=== PATIENT | female | born 1995 | race African-American/Black ===

== ENCOUNTER 2017-10-07 14:06 | Emergency (ER) | payer OTHER, SELFPAY ==
[2017-10-07] MEDS ORDERED: TETANUS & DIPHTHERIA TOX,ADULT 0.5 ML VIAL ONE (15:15)
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
[2017-10-07 16:21] VITALS: BP 116/73; TEMP 98.6; O2SAT 100
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
== END 2017-10-07 16:06 | disposition home or self-care (01) ==
LOC: ER 14:06
DX: S40.812A Abrasion of left upper arm, initial encounter (principal); S40.022A Contusion of left upper arm, initial encounter; V43.52XA Car driver injured in collision with other type car in traffic accident, initial encounter; Y93.89 Activity, other specified; Y92.410 Unspecified street and highway as the place of occurrence of the external cause
CPT/HCPCS: 90714; 99283

== ENCOUNTER 2018-08-24 15:27 | Emergency (ER) | payer SELFPAY ==
--- OUTSIDE RECORDS SUMMARY | 2018-08-24 15:51 | XMS REPORT ---
:1995 [facility] Address [address] [place] [address] Care Team Providers Name Role Phone Unavailable Unavailable Unavailable Problems This patient has no known problems. Allergies, Adverse Reactions, Alerts This patient has no known allergies or adverse reactions. Medications This patient has no known medications.
[2018-08-24 17:06] LABS: Absolute Lymphocytes (CBC) 0.5 K/uL (0.7-4.9); Absolute Monocytes 0.4 K/uL (0.1-1.3); Absolute Neutrophil 5.9 K/uL (1.8-8.0); Basophils % 0.1 % (0-1.3); Eosinophils % 0.1 % (0-4.4); Hematocrit 38.2 % (36.0-45.0); Lymphocytes % 6.8 % (15.3-44.8); MPV 9.2 fL (7.6-11.3); Monocytes % 5.8 % (3.3-12.3); RBC Red Blood Cell Count 4.26 M/uL (3.86-4.86)
[2018-08-24 17:35] LABS: ALT/SGPT 30 U/L (12-78); AST/SGOT 18 U/L (15-37); Albumin 4.3 g/dL (3.4-5.0); Alkaline Phosphatase 73 U/L (45-117); BUN Blood Urea Nitrogen 9 mg/dL (7-18); Bicarbonate 25 mmol/L (21-32); Bilirubin Direct 0.2 mg/dL (0-0.2); Bilirubin Total 0.9 mg/dL (0.2-1.0); Glucose Level 84 mg/dL (74-106); Lipase 87 U/L (73-393); Potassium 3.5 mmol/L (3.5-5.1); Protein, Total 8.9 g/dL (6.4-8.2); Sodium Level 140 mmol/L (136-145)
--- NOTE | 2018-08-24 17:40 | EDPHYS ---
Physician Documentation [facility] Name: Micaela Fowler Age: 23 yrs Sex: Female : 1995 Arrival Date: 08/24/2018 Time: 15:30 Bed 19 Private MD: None, None ED Physician Alec Parra HPI: 08/24 17:16 This 23 yrs old Black Female presents to ER via Ambulatory with complaints of kb Vomiting/Diarrhea. 17:16 The patient presents to the emergency department with nausea, vomiting, diarrhea. kb Onset: The symptoms/episode began/occurred last night. Possible causes: sick contacts, by family, daughter. The symptoms are aggravated by nothing. The symptoms are alleviated by nothing. Associated signs and symptoms: Pertinent positives: diarrhea, nausea, vomiting. Severity of symptoms: At their worst the symptoms were moderate in the emergency department the symptoms are unchanged. The patient has not experienced similar symptoms in the past. The patient has not recently seen a physician. Pt reports she started getting abd cramps last night. Today has had n/v/d all day. Has not had an episode of n/v/d since 1400, but still having cramps. 2 children have same symptoms.. 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 - Social history:: Smoking status: . - Ebola Screening: : No symptoms or risks identified at this time. ROS: 17:14 Constitutional: Negative for fever, chills, and weight loss, Cardiovascular: Negative kb for chest pain, palpitations, and edema, Respiratory: Negative for shortness of breath, cough, wheezing, and pleuritic chest pain, Back: Negative for injury and pain, : Negative for injury, bleeding, discharge, and swelling, MS/Extremity: Negative for injury and deformity, Skin: Negative for injury, rash, and discoloration, Neuro: Negative for headache, weakness, numbness, tingling, and seizure. 17:14 Abdomen/GI: Positive for nausea, vomiting, and diarrhea, abdominal cramps. Exam: 17:14 Constitutional: This is a well developed, well nourished patient who is awake, alert, kb and in no acute distress. Head/Face: Normocephalic, atraumatic. Neck: Trachea midline, no thyromegaly or masses palpated, and no cervical lymphadenopathy. Supple, full range of motion without nuchal rigidity, or vertebral point tenderness. No Meningismus. Chest/axilla: Normal chest wall appearance and motion. Nontender with no deformity. No lesions are appreciated. Cardiovascular: Regular rate and rhythm with a normal S1 and S2. No gallops, murmurs, or rubs. Normal PMI, no JVD. No pulse deficits. Respiratory: Lungs have equal breath sounds bilaterally, clear to auscultation and percussion. No rales, rhonchi or wheezes noted. No increased work of breathing, no retractions or nasal flaring. Abdomen/GI: Soft, non-tender, with normal bowel sounds. No distension or tympany. No guarding or rebound. No evidence of tenderness throughout. Skin: Warm, dry with normal turgor. Normal color with no rashes, no lesions, and no evidence of cellulitis. MS/ Extremity: Pulses equal, no cyanosis. Neurovascular intact. Full, normal range of motion. Neuro: Awake and alert, GCS 15, oriented to person, place, time, and situation. Cranial nerves II-XII grossly intact. Motor strength 5/5 in all extremities. Sensory grossly intact. Cerebellar exam normal. Normal gait. Vital Signs: 15:34 BP 129 / 73; Pulse 95; Resp 18; Temp 100.3(O); Pulse Ox 100% on R/A; Weight 74.84 kg; Height 5 ft. 8 in. (172.72 cm); Pain 5/10; 16:30 BP 118 / 78; Pulse 94; Resp 18; Pulse Ox 99% on R/A; ph 17:30 BP 122 / 82; Pulse 89; Resp 16; Pulse Ox 100% on R/A; ph 19:00 BP 127 / 86; Pulse 81; Resp 18; Temp 98.2; Pulse Ox 100% on R/A; ph 15:34 Body Mass Index 25.09 (74.84 kg, 172.72 cm) MDM: 16:35 Patient medically screened. kb 17:12 Data reviewed: vital signs, nurses notes. Data interpreted: Pulse oximetry: on room air kb is 100 %. Interpretation: normal. 17:37 Counseling: I had a detailed discussion with the patient and/or guardian regarding: the kb historical points, exam findings, and any diagnostic results supporting the discharge/admit diagnosis, lab results, the need for outpatient follow up, a family practitioner, to return to the emergency department if symptoms worsen or persist or if there are any questions or concerns that arise at home. 08/24 17:09 Order name: CBC with Automated Diff; Complete Time: 19:35 EDMS 08/24 17:36 Order name: Basic Metabolic Panel; Complete Time: 17:36 EDMS 08/24 16:35 Order name: IV Saline Lock; Complete Time: 16:51 kb 08/24 16:35 Order name: Labs collected and sent; Complete Time: 16:51 kb 08/24 17:36 Order name: Liver (Hepatic) Function; Complete Time: 17:36 EDMS 08/24 17:36 Order name: Lipase; Complete Time: 17:36 EDMS 08/24 19:29 Order name: CBC Smear Scan; Complete Time: 19:35 EDMS Administered Medications: 18:30 Drug: NS 0.9% 1000 ml Route: IV; Rate: 1000 ml; Site: left antecubital; ph 19:25 Follow up: Response: No adverse reaction; IV Status: Completed infusion ph 18:30 Drug: Ibuprofen 600 mg Route: PO; ph 19:00 Follow up: Response: No adverse reaction ph 18:30 Drug: Bentyl 20 mg Route: PO; ph 19:00 Follow up: Response: No adverse reaction ph Disposition: 08/24/18 17:39 Discharged to Home. Impression: Noninfective gastroenteritis and colitis, unspecified. - Condition is Stable. - Discharge Instructions: Food Choices to Help Relieve Diarrhea, Adult, Viral Gastroenteritis, Adult, Lhje-[id number]. - Prescriptions for Bentyl 20 mg Oral Tablet - take 1 tablet by ORAL route every 6 hours As needed; 20 tablet. Zofran 4 mg Oral Tablet - take 1 tablet by ORAL route every 6 hours As needed; 20 tablet. - Medication Reconciliation Form, Thank You Letter, Antibiotic Education, Prescription Opioid Use, Work release form form. - Follow up: Emergency Department; When: As needed; Reason: Worsening of condition. Follow up: Private Physician; When: 2 - 3 days; Reason: Recheck today's complaints, Continuance of care, Re-evaluation by your physician. Addendum: 08/26/2018 06:02 Co-signature as Attending Physician, Alec Parra MD. g s Signatures: Dispatcher [employer] EDAraseli Ochoa, LOAN ANALYST-C LOAN ANALYST-Shandra Perry, RN RN Sujit Kirkland, RN RN Cameron Sierra, RN RN [id number] Alec Parra MD MD Corrections: (The following items were deleted from the chart) 08/24 19:37 17:39 08/24/2018 17:39 Discharged to Home. Impression: Noninfective gastroenteritis and jb4 colitis, unspecified. Condition is Stable. Forms are Medication Reconciliation Form, Thank You Letter, Antibiotic Education, Prescription Opioid Use. Follow up: Emergency Department; When: As needed; Reason: Worsening of condition. Follow up: Private Physician; When: 2 - 3 days; Reason: Recheck today's complaints, Continuance of care, Re-evaluation by your physician. kb
--- NOTE | 2018-08-24 17:40 | ER ---
Nurse's Notes [facility] Name: Micaela Fowler Age: 23 yrs Sex: Female : 1995 Arrival Date: 08/24/2018 Time: 15:30 Bed 19 Private MD: None, None Diagnosis: Noninfective gastroenteritis and colitis, unspecified Presentation: 08/24 15:32 Presenting complaint: Patient states: this morning i started having vomiting and hj diarrhea; reports epigastric pain; denies fever;. Transition of care: patient was not received from another setting of care. Onset of symptoms was August 24, 2018. Risk Assessment: Do you want to hurt yourself or someone else? Patient reports no desire to harm self or others. Initial Sepsis Screen: Does the patient meet any 2 criteria? No. Patient's initial sepsis screen is negative. Does the patient have a suspected source of infection? No. Patient's initial sepsis screen is negative. Care prior to arrival: None. 15:32 Method Of Arrival: Ambulatory 15:32 Acuity: CARIN 3 hj DATABASE SPECIALIST: 15:35 LMP 08/10/2018 Historical: - Allergies: 15:34 No Known Allergies; hj - PMHx: 15:34 None; hj - PSHx: 15:34 None; hj - Immunization history:: Adult Immunizations unknown. - Social history:: Smoking status: . - Ebola Screening: : No symptoms or risks identified at this time. Screenin:35 Abuse screen: Denies threats or abuse. Denies injuries from another. Nutritional ph screening: No deficits noted. Tuberculosis screening: No symptoms or risk factors identified. Fall Risk None identified. Assessment: 16:30 General: Appears in no apparent distress. comfortable, slender, well groomed, Behavior ph is calm, cooperative, appropriate for age, Denies fever. Pain: Complains of pain in epigastric area Pain does not radiate. Neuro: Level of Consciousness is awake, alert, obeys commands, Oriented to person, place, time, situation. Cardiovascular: Capillary refill < 3 seconds in bilateral fingers Patient's skin is warm and dry. Respiratory: Airway is patent Respiratory effort is even, unlabored, Respiratory pattern is regular, symmetrical. GI: Abdomen is flat, non-distended, Bowel sounds present X 4 quads. Abd is soft and non tender X 4 quads. Reports upper abdominal pain, diarrhea, epigastric pain, nausea, vomiting. : No signs and/or symptoms were reported regarding the genitourinary system. Derm: Skin is intact, is healthy with good turgor, Skin is pink, warm \T\ dry. 18:15 Reassessment: Patient appears in no apparent distress at this time. Patient and/or ph family updated on plan of care and expected duration. Pain level reassessed. Patient is alert, oriented x 3, equal unlabored respirations, skin warm/dry/pink. D/C pending completion of IV fluids. 19:20 Reassessment: Patient appears in no apparent distress at this time. Patient and/or ph family updated on plan of care and expected duration. Pain level reassessed. Patient is alert, oriented x 3, equal unlabored respirations, skin warm/dry/pink. Pt d/c home. Vital Signs: 15:34 BP 129 / 73; Pulse 95; Resp 18; Temp 100.3(O); Pulse Ox 100% on R/A; Weight 74.84 kg; hj Height 5 ft. 8 in. (172.72 cm); Pain 5/10; 16:30 BP 118 / 78; Pulse 94; Resp 18; Pulse Ox 99% on R/A; ph 17:30 BP 122 / 82; Pulse 89; Resp 16; Pulse Ox 100% on R/A; ph 19:00 BP 127 / 86; Pulse 81; Resp 18; Temp 98.2; Pulse Ox 100% on R/A; ph 15:34 Body Mass Index 25.09 (74.84 kg, 172.72 cm) ED Course: 15:30 Patient arrived in ED. mr 15:30 None, None is Private Physician. mr 15:33 Triage completed. hj 15:35 Arm band placed on right wrist. hj 16:34 Araseli Topete FNP-C is [facility]. kb 16:35 Alec Parra MD is Attending Physician. kb 16:39 Shandra Schuster, PARDEEP is Primary Nurse. ph 16:50 Initial lab(s) drawn, by ga, sent to lab. Inserted saline lock: 22 gauge in left jb1 antecubital area, using aseptic technique. Blood collected. 18:38 Patient has correct armband on for positive identification. Placed in gown. Bed in low ph position. Call light in reach. Side rails up X 1. Pulse ox on. NIBP on. Door closed. Noise minimized. Warm blanket given. 18:39 No provider procedures requiring assistance completed. ph 19:35 IV discontinued, intact, bleeding controlled, No redness/swelling at site. Pressure ph dressing applied. Administered Medications: 18:30 Drug: NS 0.9% 1000 ml Route: IV; Rate: 1000 ml; Site: left antecubital; ph 19:25 Follow up: Response: No adverse reaction; IV Status: Completed infusion ph 18:30 Drug: Ibuprofen 600 mg Route: PO; ph 19:00 Follow up: Response: No adverse reaction ph 18:30 Drug: Bentyl 20 mg Route: PO; ph 19:00 Follow up: Response: No adverse reaction ph Outcome: 17:39 Discharge ordered by . kb 19:37 Patient left the ED. jb4 19:37 Discharged to home ambulatory. ph 19:37 Condition: good 19:37 Discharge instructions given to patient, Instructed on discharge instructions, follow up and referral plans. medication usage, Demonstrated understanding of instructions, follow-up care, medications, Prescriptions given X 2. Signatures: Thomas Aguayo jb1 Araseli Topete, BLANKBOOK FORWARDER-Anaay BLANKBOOK FORWARDER-Lyndsey Malinda Gibbs Shandra Schuster RN RN Sujit Kirkland, PARDEEP ROBERTO Cameron Sierra, PARDEEP RN jb4 Corrections: (The following items were deleted from the chart) 15:36 15:34 Pulse 95bpm; Resp 18bpm; Pulse Ox 100% RA; Temp 100.3F Oral; 74.84 kg; Height 5 hj ft. 8 in.; BMI: 25.0; Pain 5/10; hj 19:53 17:45 Reassessment: Patient appears in no apparent distress at this time. Patient ph and/or family updated on plan of care and expected duration. Pain level reassessed. Patient is alert, oriented x 3, equal unlabored respirations, skin warm/dry/pink. D/C pending completion of IV fluids ph
[2018-08-24] MEDS ORDERED: IBUPROFEN 200 MG TAB PO ONE (18:16)
[2018-08-24] MEDS ORDERED: IBUPROFEN 400 MG TAB ONE (18:16)
[2018-08-24] MEDS ORDERED: DICYCLOMINE HCL 10 MG CAP ONE (18:16)
[2018-08-24] MEDS ORDERED: NA CHLORIDE 0.9% 1,000 ML ONE (18:17)
[2018-08-24 19:27] LABS: Platelet Estimate ADEQ; Urine White Blood Cell Casts OK
[2018-08-24 19:28] LABS: Blood Morphology Comment NOT SEEN (NOT SEEN)
[2018-08-24 19:40] VITALS: BP 129/73; TEMP 100.3; O2SAT 100
== END 2018-08-24 19:37 | disposition home or self-care (01) ==
LOC: ER 15:27
DX: K52.9 Noninfective gastroenteritis and colitis, unspecified (principal)
CPT/HCPCS: 36415; 80048; 80076; 83690; 85025; 96360; 99284; J7030